=== PATIENT | male | born 1995 | race Caucasian/White ===

== ENCOUNTER 2016-10-06 16:49 | Inpatient (IN) | payer BC, OTHER ==
[~2016-10-06] VITALS: Ht 185.4 cm; Wt 89.8 kg
[2016-10-06 19:40] LABS: *AMPHETAMINE, URINE NEGATIVE (NEGATIVE); *BARBITURATE, URINE NEGATIVE (NEGATIVE); *CANNABINOID, URINE POSITIVE (NEGATIVE); *COCCAINE, URINE NEGATIVE (NEGATIVE); *OPIATE, URINE NEGATIVE (NEGATIVE); *PHENCYCLIDINE SCREEN,URINE NEGATIVE (NEGATIVE)
[2016-10-06 20:00] VITALS: BP 98/47
[2016-10-06] MEDS ORDERED: IBUPROFEN 400 MG TABLET PO PRN (20:00)
[2016-10-06] MEDS ORDERED: CLONIDINE HCL 0.1 MG TABLET PO PRN (20:00)
[2016-10-06] MEDS ORDERED: LOPERAMIDE HCL 2 MG CAPSULE PO PRN ×2 (20:00)
[2016-10-06] MEDS ORDERED: MAGNESIUM HYDROXIDE 30 ML LIQUID UDC PO PRN (20:00)
[2016-10-06] MEDS ORDERED: ACETAMINOPHEN 325 MG TABLET PO PRN (20:00)
[2016-10-06] MEDS ORDERED: MIRALAX 17 GM POWD.PACK PO PRN (20:00)
[2016-10-06] MEDS ORDERED: LORAZEPAM 2 MG/1 ML VIAL IM PRN (20:00)
[2016-10-06] MEDS ORDERED: BUPRENORPHINE HCL 2 MG TAB.SUBL SL PRN (20:00)
[2016-10-06] MEDS ORDERED: DICYCLOMINE HCL 20 MG TABLET PO PRN (20:00)
[2016-10-06] MEDS ORDERED: THIAMINE HCL 200 MG/2 ML VIAL IM ONE (20:00)
[2016-10-06] MEDS ORDERED: MAG HYDROX/AL HYDROX/SIMETH 30 ML LIQUID UDC PO PRN (20:00)
[2016-10-06] MEDS ORDERED: LORAZEPAM 1 MG TABLET PO PRN ×2 (20:00)
[2016-10-06 21:18] LABS: BASOPHILS % (AUTO) 0.5 % (0.0-2.0); EOSINOPHILS # (AUTO) 0.2 K/uL (0.0-0.7); EOSINOPHILS % (AUTO) 3.1 % (0.0-7.0); HEMOGLOBIN 13.1 g/dL (12.5-16.3); LYMPHOCYTES # (AUTO) 3.2 K/uL (20.0-40.0); LYMPHOCYTES % (AUTO) 40.1 % (20.5-51.5); MEAN CORPUSCULAR HEMOGLOBIN 29.4 uug (23.8-33.4); MEAN CORPUSCULAR HGB CONC 34 g/dL (32.5-36.3); MEAN CORPUSCULAR VOLUME 87.4 fL (73.0-96.2); MONOCYTES # (AUTO) 0.6 K/uL (2.0-10.0); MONOCYTES % (AUTO) 8.1 % (0.0-11.0); NEUTROPHILS % (AUTO) 48.2 % (38.5-71.5); PLATELET COUNT (AUTO) 181 K/uL (152-348); RED BLOOD CELL COUNT(AUTO) 4.46 MIL/uL (4.06-5.63); RED CELL DISTRIBUTION WIDTH 12.8 % (12.1-16.2)
[2016-10-06 21:30] LABS: ALBUMIN 3.9 g/dL (3.4-5.0); BILIRUBIN,TOTAL 0.4 mg/dL (0.2-1.0); CALCIUM 8.2 mg/dL (8.5-10.1); CREATININE 1.2 mg/dL (0.6-1.3); MAGNESIUM 1.9 mg/dL (1.8-2.4); POTASSIUM 3.1 mmol/L (3.5-5.1); TOTAL PROTEIN, SERUM 6.5 g/dL (6.4-8.2)
[2016-10-06 21:41] LABS: THYROID STIMULATING HORMONE 0.724 mIU/mL (0.358-3.740)
[2016-10-06 21:45] LABS: HIV-1 p24 ANTIGEN NON REACTIVE (NONREACTIVE); HIV-1/2 ANTIBODY NON REACTIVE (NONREACTIVE)
[2016-10-07] VITALS: BP 93/46
[2016-10-07] MEDS ORDERED: BUPR-51 PO (01:20)
[2016-10-07] MEDS ORDERED: BUPR300T54 PO (01:20)
[2016-10-07 04:00] VITALS: BP 102/47
[2016-10-07] MEDS ORDERED: THIAMINE HCL 200 MG/2 ML VIAL IM ONE (06:15)
[2016-10-07] MEDS ORDERED: POTASSIUM CHLORIDE 20 MEQ TAB.PRT.SR PO ONE (06:15)
[2016-10-07 08:06] VITALS: BP 102/47
[2016-10-07] MEDS: MULTIVITAMINS,THERAPEUTIC TABLET PO SCH (08:54)
[2016-10-07] MEDS: THIAMINE HCL 100 MG TABLET PO SCH (08:54)
[2016-10-07] MEDS: FOLIC ACID 1 MG TABLET PO SCH (08:54)
[2016-10-07] MEDS ORDERED: TUBERCULIN,PURIF.PROT.DERIV. 5 TU/0.1 ML TEST ID ONE (09:00)
[2016-10-07] MEDS: ONDANSETRON ODT 4 MG TAB.RAPDIS SL PRN ×2 (10:01→20:39)
[2016-10-07] MEDS: buPROPion XL 150 MG TAB.SR.24H PO SCH (11:01)
[2016-10-07] MEDS: LORAZEPAM 1 MG TABLET PO SCH ×3 (12:12→20:40)
[2016-10-07] MEDS: BUPRENORPHINE HCL 2 MG TAB.SUBL SL SCH ×3 (12:12→20:44)
[2016-10-07 12:31] VITALS: BP 116/75
[2016-10-07 17:32] VITALS: BP 116/75
[2016-10-07 20:00] VITALS: BP 139/99
[2016-10-07] MEDS: METHOCARBAMOL 750 MG TABLET PO PRN (20:41)
[2016-10-08] VITALS: BP 155/88
[2016-10-08] MEDS: ONDANSETRON 4 MG/2 ML VIAL IM PRN ×2 (00:18→00:50)
[2016-10-08] MEDS ORDERED: LORAZEPAM 1 MG TABLET ONE (01:44)
[2016-10-08] MEDS ORDERED: PROMETHAZINE HCL 25 MG/1 ML VIAL ONE (01:44)
[2016-10-08] MEDS ORDERED: PROMETHAZINE HCL 25 MG/1 ML VIAL IM ONE (01:45)
[2016-10-08] MEDS ORDERED: LORAZEPAM 1 MG TABLET PO ONE (01:45)
[2016-10-08 04:00] VITALS: BP 98/72
[2016-10-08 08:00] LABS: ALBUMIN 4.2 g/dL (3.4-5.0); BILIRUBIN,DIRECT 0.1 mg/dL (0.0-0.2); BILIRUBIN,TOTAL 0.8 mg/dL (0.2-1.0); CALCIUM 9.2 mg/dL (8.5-10.1); CREATININE 1.1 mg/dL (0.6-1.3); PHOSPHOROUS 4.3 mg/dL (2.5-4.9); POTASSIUM 4.6 mmol/L (3.5-5.1)
[2016-10-08 08:02] VITALS: BP 143/88
[2016-10-08] MEDS: MULTIVITAMINS,THERAPEUTIC TABLET PO SCH (08:08)
[2016-10-08] MEDS: buPROPion XL 150 MG TAB.SR.24H PO SCH (08:08)
[2016-10-08] MEDS: LORAZEPAM 1 MG TABLET PO SCH ×3 (08:08→21:20)
[2016-10-08] MEDS: BUPRENORPHINE HCL 2 MG TAB.SUBL SL SCH ×3 (08:09→21:19)
[2016-10-08] MEDS: THIAMINE HCL 100 MG TABLET PO SCH (08:09)
[2016-10-08] MEDS: FOLIC ACID 1 MG TABLET PO SCH (08:09)
[2016-10-08 08:10] LABS: BASOPHILS % (AUTO) 0.3 % (0.0-2.0); EOSINOPHILS # (AUTO) 0.2 K/uL (0.0-0.7); EOSINOPHILS % (AUTO) 1.9 % (0.0-7.0); HEMATOCRIT 40.4 % (36.7-47.1); HEMOGLOBIN 14.2 g/dL (12.5-16.3); LYMPHOCYTES # (AUTO) 2.8 K/uL (20.0-40.0); LYMPHOCYTES % (AUTO) 27.3 % (20.5-51.5); MEAN CORPUSCULAR HEMOGLOBIN 30.3 uug (23.8-33.4); MEAN CORPUSCULAR HGB CONC 35 g/dL (32.5-36.3); MEAN CORPUSCULAR VOLUME 86.4 fL (73.0-96.2); MONOCYTES % (AUTO) 9.5 % (0.0-11.0); NEUTROPHILS # (AUTO) 6.2 K/uL (1.8-8.9); PLATELET COUNT (AUTO) 201 K/uL (152-348); RED BLOOD CELL COUNT(AUTO) 4.68 MIL/uL (4.06-5.63)
[2016-10-08 08:22] LABS: WHITE BLOOD COUNT (AUTO) 10.3 K/uL (3.6-10.2)
[2016-10-08 12:00] VITALS: BP 144/93
[2016-10-08] MEDS: DICYCLOMINE HCL 20 MG TABLET PO SCH ×2 (14:07→21:20)
[2016-10-08 17:39] VITALS: BP 144/103
[2016-10-08] MEDS: ONDANSETRON ODT 4 MG TAB.RAPDIS SL PRN (18:39)
[2016-10-08 20:00] VITALS: BP 144/84
[2016-10-08] MEDS: HYDROXYZINE PAMOATE 25 MG CAPSULE PO PRN (21:20)
[2016-10-08] MEDS: METHOCARBAMOL 750 MG TABLET PO PRN (21:20)
[2016-10-09] VITALS (7 sets, daily range): BP systolic 112–149; BP diastolic 77–107
[2016-10-09 05:06] LABS: HCV AB 0.1 s/co ratio (0.0-0.9); HEPATITIS B CORE AB, IgM Negative (Negative); HEPATITIS B SURFACE AG Negative (Negative)
[2016-10-09] MEDS ORDERED: BUPRENORPHINE HCL 2 MG TAB.SUBL SL SCH (09:00)
[2016-10-09] MEDS: THIAMINE HCL 100 MG TABLET PO SCH (09:05)
[2016-10-09] MEDS: LORAZEPAM 1 MG TABLET PO SCH ×4 (09:05→21:41)
[2016-10-09] MEDS: FOLIC ACID 1 MG TABLET PO SCH (09:05)
[2016-10-09] MEDS: DICYCLOMINE HCL 20 MG TABLET PO SCH ×3 (09:05→21:41)
[2016-10-09] MEDS: MULTIVITAMINS,THERAPEUTIC TABLET PO SCH (09:05)
[2016-10-09] MEDS: buPROPion XL 150 MG TAB.SR.24H PO SCH (09:06)
[2016-10-09] MEDS: GABAPENTIN 300 MG CAPSULE PO SCH ×2 (14:43→21:41)
[2016-10-09] MEDS: BUPRENORPHINE HCL 2 MG TAB.SUBL SL SCH ×2 (14:44→21:41)
[2016-10-09] MEDS: CLONIDINE HCL 0.1 MG TABLET PO SCH (21:41)
[2016-10-09] MEDS: diphenhydrAMINE 50 MG CAPSULE PO PRN (23:43)
[2016-10-09] MEDS: HYDROXYZINE PAMOATE 25 MG CAPSULE PO PRN (23:44)
[2016-10-10 00:11] VITALS: BP 117/81
[2016-10-10 04:22] VITALS: BP 117/69
[2016-10-10 07:07] LABS: BASOPHILS # (AUTO) 0.1 K/uL (0.0-8.0); BASOPHILS % (AUTO) 0.7 % (0.0-2.0); EOSINOPHILS # (AUTO) 0.4 K/uL (0.0-0.7); EOSINOPHILS % (AUTO) 4.4 % (0.0-7.0); HEMATOCRIT 44.1 % (36.7-47.1); HEMOGLOBIN 15.2 g/dL (12.5-16.3); LYMPHOCYTES # (AUTO) 2.8 K/uL (20.0-40.0); LYMPHOCYTES % (AUTO) 34.3 % (20.5-51.5); MEAN CORPUSCULAR HEMOGLOBIN 30.1 uug (23.8-33.4); MEAN CORPUSCULAR HGB CONC 35 g/dL (32.5-36.3); MEAN CORPUSCULAR VOLUME 87.3 fL (73.0-96.2); MONOCYTES # (AUTO) 1.1 K/uL (2.0-10.0); MONOCYTES % (AUTO) 13.7 % (0.0-11.0); NEUTROPHILS # (AUTO) 3.8 K/uL (1.8-8.9); NEUTROPHILS % (AUTO) 46.9 % (38.5-71.5); PLATELET COUNT (AUTO) 205 K/uL (152-348); RED BLOOD CELL COUNT(AUTO) 5.05 MIL/uL (4.06-5.63); RED CELL DISTRIBUTION WIDTH 12.5 % (12.1-16.2); WHITE BLOOD COUNT (AUTO) 8.2 K/uL (3.6-10.2)
[2016-10-10 07:48] LABS: ALBUMIN 4.3 g/dL (3.4-5.0); BILIRUBIN,DIRECT 0.1 mg/dL (0.0-0.2); BILIRUBIN,TOTAL 0.4 mg/dL (0.2-1.0); CALCIUM 8.9 mg/dL (8.5-10.1); CREATININE 1.2 mg/dL (0.6-1.3); MAGNESIUM 2.4 mg/dL (1.8-2.4); PHOSPHOROUS 4.4 mg/dL (2.5-4.9); TOTAL PROTEIN, SERUM 7.5 g/dL (6.4-8.2)
[2016-10-10 08:00] VITALS: BP 123/67
[2016-10-10] MEDS: MULTIVITAMINS,THERAPEUTIC TABLET PO SCH (08:46)
[2016-10-10] MEDS: GABAPENTIN 300 MG CAPSULE PO SCH ×3 (08:46→21:20)
[2016-10-10] MEDS: DICYCLOMINE HCL 20 MG TABLET PO SCH ×4 (08:47→21:20)
[2016-10-10] MEDS: buPROPion XL 150 MG TAB.SR.24H PO SCH (08:47)
[2016-10-10] MEDS: FOLIC ACID 1 MG TABLET PO SCH (08:47)
[2016-10-10] MEDS: LORAZEPAM 1 MG TABLET PO SCH ×3 (08:47→21:20)
[2016-10-10] MEDS: CLONIDINE HCL 0.1 MG TABLET PO SCH ×2 (08:48→21:19)
[2016-10-10] MEDS: THIAMINE HCL 100 MG TABLET PO SCH (08:48)
[2016-10-10] MEDS: BUPRENORPHINE HCL 2 MG TAB.SUBL SL SCH ×3 (08:48→21:19)
[2016-10-10] MEDS: ONDANSETRON 4 MG/2 ML VIAL IM PRN (10:58)
[2016-10-10 12:00] VITALS: BP 130/89
[2016-10-10 16:00] VITALS: BP 128/78
[2016-10-10 20:00] VITALS: BP 146/105
[2016-10-10] MEDS: HYDROXYZINE PAMOATE 25 MG CAPSULE PO PRN (23:59)
[2016-10-10] MEDS: METHOCARBAMOL 750 MG TABLET PO PRN (23:59)
[2016-10-11] VITALS: BP 140/89
[2016-10-11 04:00] VITALS: BP 110/60
[2016-10-11 08:00] VITALS: BP 119/87
[2016-10-11] MEDS: THIAMINE HCL 100 MG TABLET PO SCH (09:25)
[2016-10-11] MEDS: GABAPENTIN 300 MG CAPSULE PO SCH ×3 (09:25→20:38)
[2016-10-11] MEDS: DICYCLOMINE HCL 20 MG TABLET PO SCH ×2 (09:25→13:00)
[2016-10-11] MEDS: BUPRENORPHINE HCL 2 MG TAB.SUBL SL SCH ×2 (09:25→20:39)
[2016-10-11] MEDS: MULTIVITAMINS,THERAPEUTIC TABLET PO SCH (09:25)
[2016-10-11] MEDS: CLONIDINE HCL 0.1 MG TABLET PO SCH ×3 (09:25→20:39)
[2016-10-11] MEDS: FAMOTIDINE 20 MG TABLET PO SCH (09:25)
[2016-10-11] MEDS: FOLIC ACID 1 MG TABLET PO SCH (09:25)
[2016-10-11] MEDS: buPROPion XL 150 MG TAB.SR.24H PO SCH (09:26)
[2016-10-11] MEDS: LORAZEPAM 1 MG TABLET PO SCH ×2 (09:26→20:39)
[2016-10-11 12:00] VITALS: BP 143/68
[2016-10-11] MEDS ORDERED: DICYCLOMINE HCL 20 MG TABLET PO PRN (14:15)
[2016-10-11 16:00] VITALS: BP 137/93
[2016-10-11 20:00] VITALS: BP_SYST 126; BP_SYST 146; BP_DIAS 97; BP_DIAS 99
[2016-10-11] MEDS: diphenhydrAMINE 50 MG CAPSULE PO PRN (22:04)
[2016-10-11] MEDS: HYDROXYZINE PAMOATE 25 MG CAPSULE PO PRN (23:41)
[2016-10-11] MEDS: METHOCARBAMOL 750 MG TABLET PO PRN (23:42)
[2016-10-12] VITALS (7 sets, daily range): BP systolic 100–145; BP diastolic 61–93
[2016-10-12] MEDS ORDERED: TRAZODONE 50 MG TABLET PO ONE (01:30)
[2016-10-12 08:06] LABS: *CANNABINOID (THC) Positive (.)
[2016-10-12] MEDS: buPROPion XL 150 MG TAB.SR.24H PO SCH (08:29)
[2016-10-12] MEDS: CLONIDINE HCL 0.1 MG TABLET PO SCH ×3 (08:29→21:42)
[2016-10-12] MEDS: THIAMINE HCL 100 MG TABLET PO SCH (08:30)
[2016-10-12] MEDS: FAMOTIDINE 20 MG TABLET PO SCH (08:30)
[2016-10-12] MEDS: MULTIVITAMINS,THERAPEUTIC TABLET PO SCH (08:30)
[2016-10-12] MEDS: FOLIC ACID 1 MG TABLET PO SCH (08:30)
[2016-10-12] MEDS: GABAPENTIN 300 MG CAPSULE PO SCH ×2 (08:30→15:08)
[2016-10-12] MEDS ORDERED: BUPRENORPHINE HCL 2 MG TAB.SUBL SL SCH (09:00)
[2016-10-12 14:24] LABS: *AMPHETAMINE, URINE NEGATIVE (NEGATIVE); *BARBITURATE, URINE NEGATIVE (NEGATIVE); *CANNABINOID, URINE POSITIVE (NEGATIVE); *COCCAINE, URINE NEGATIVE (NEGATIVE); *OPIATE, URINE NEGATIVE (NEGATIVE); *PHENCYCLIDINE SCREEN,URINE NEGATIVE (NEGATIVE)
[2016-10-12] MEDS ORDERED: DIPH50CA37 PO (19:44)
[2016-10-12] MEDS ORDERED: Gabapentin PO ×2 (19:44)
[2016-10-12] MEDS ORDERED: HYDR-3895 PO (19:44)
[2016-10-12] MEDS ORDERED: DICY20TA28 PO (19:44)
[2016-10-12] MEDS ORDERED: Famotidine PO (19:44)
[2016-10-12] MEDS ORDERED: METH-33 PO (19:44)
[2016-10-12] MEDS ORDERED: Ondansetron SL (19:44)
[2016-10-12] MEDS ORDERED: Ibuprofen PO (19:44)
[2016-10-12] MEDS ORDERED: CLON0.1T14 PO (19:44)
[2016-10-12] MEDS ORDERED: GABAPENTIN 300 MG CAPSULE PO SCH (21:00)
== END 2016-10-12 22:00 | disposition other institution (70) | DRG 895 ==
LOC: SRC 18:22
PROVIDERS: ADMIT Internal Medicine; ATTEND Internal Medicine
PROC: HZ2ZZZZ Detoxification Services for Substance Abuse Treatment (ICD-10-PCS; principal; 2016-10-06)
PROC: HZ41ZZZ Group Counseling for Substance Abuse Treatment, Behavioral (ICD-10-PCS; 2016-10-07)
PROC: HZ31ZZZ Individual Counseling for Substance Abuse Treatment, Behavioral (ICD-10-PCS; 2016-10-08)
DX: F10.230 Alcohol dependence with withdrawal, uncomplicated (principal); F33.2 Major depressive disorder, recurrent severe without psychotic features; F14.20 Cocaine dependence, uncomplicated; E87.3 Alkalosis; F11.23 Opioid dependence with withdrawal; K70.10 Alcoholic hepatitis without ascites; E87.6 Hypokalemia; E83.51 Hypocalcemia; Z82.49 Family history of ischemic heart disease and other diseases of the circulatory system; Z82.5 Family history of asthma and other chronic lower respiratory diseases; Z81.1 Family history of alcohol abuse and dependence; F17.210 Nicotine dependence, cigarettes, uncomplicated; Z81.8 Family history of other mental and behavioral disorders; Y90.2 Blood alcohol level of 40-59 mg/100 ml; F41.0 Panic disorder [episodic paroxysmal anxiety]; F16.10 Hallucinogen abuse, uncomplicated; I15.9 Secondary hypertension, unspecified; F12.10 Cannabis abuse, uncomplicated; E86.0 Dehydration; D72.823 Leukemoid reaction; F13.10 Sedative, hypnotic or anxiolytic abuse, uncomplicated; R73.9 Hyperglycemia, unspecified
CPT/HCPCS: 36415; 70030-TC; 80307; 80349; 82306; 83690; 83735; 84100; 84443; 85025; 86580; 86592; 86705; 86803; 87340; 87806; G6040-TC; J2405; J2550; Q0162; Q0163